=== PATIENT | male | born 1975 | race Two or more races ===

== ENCOUNTER 2019-11-08 05:21 | Emergency (ER) | payer OTHER ==
[~2019-11-08] VITALS: Ht 182.9 cm; Wt 103.7 kg
--- NOTE | 2019-11-08 05:57 | NUR ---
DR LINARES PERFORMED PT HISTORY AND ASSESSMENT AT BS. LAB AT [facility] TO DRAW LABS. FLU AND COVID SWABS COMPLETED AND WALKED TO LAB AT THIS TIME.
[2019-11-08 06:17] LABS: ALBUMIN 3.7 g/dL (3.4-5.0); ANION GAP 9 mmol/L (5-15); CALCIUM 9.4 mg/dL (8.5-10.1); CHLORIDE 106 mmol/L (98-107)
[2019-11-08 06:22] LABS: ALANINE AMINOTRANSFERASE 149 U/L (12-78); ALKALINE PHOSPHATASE 107 U/L (45-117); BILIRUBIN,TOTAL 0.4 mg/dL (0.2-1.0); CREATINE KINASE, TOTAL 139 U/L (39-308); CREATININE 0.91 mg/dL (0.7-1.3); TOTAL PROTEIN 8.9 g/dL (6.4-8.2)
[2019-11-08 06:29] VITALS: BP 133/107
[2019-11-08 06:33] LABS: RAPID INFLUENZA A Negative (Negative); RAPID INFLUENZA B Negative (Negative)
--- NOTE | 2019-11-08 06:45 | NUR ---
XRAY AT AT THIS TIME.
[2019-11-08 06:49] LABS: MEAN CORPUSCULAR HEMOGLOBIN 29.5 pg (27.5-34.5); MEAN CORPUSCULAR VOLUME 89.5 fL (81-97); MEAN PLATELET VOLUME 8.1 fL (7.4-10.4); PLATELET COUNT 316 x10^3/uL (130-400); RED CELL DISTRIBUTION WIDTH 13.1 % (9.4-14.8)
[2019-11-08 06:50] LABS: BASOPHILS # (AUTO) 0.03 x10^3/uL (0-0.1); BASOPHILS % (AUTO) 0 % (0-1); EOSINOPHILS # (AUTO) 0.24 x10^3/uL (0-0.4); EOSINOPHILS % (AUTO) 3 % (1-7); LYMPHOCYTES # (AUTO) 2.42 x10^3/uL (1-3.4); LYMPHOCYTES % (AUTO) 29 % (22-44); MD SCAN; MONOCYTES # (AUTO) 1.21 x10^3/uL (0.2-0.8); MONOCYTES % (AUTO) 14 % (2-9); NEUTROPHILS % (AUTO) 54 % (42-75)
--- NOTE | 2019-11-08 06:57 | NUR ---
REPORT OF PT TO EMELY MCNAMARA. ALL QUESTIONS ANSWERED.
--- NOTE | 2019-11-08 06:57 | NUR ---
REPORT RECEIVED FROM EMELY LIZ. ERP TO BEDSIDE TO UPDATE PT ON POC.
== END 2019-11-08 07:08 | disposition home or self-care (01) ==
LOC: ED 05:37
DX: J18.9 Pneumonia, unspecified organism (principal); Z20.828 Contact with and (suspected) exposure to other viral communicable diseases; B34.9 Viral infection, unspecified
CPT/HCPCS: 36415; 71045; 80053; 82550; 85025; 87400; 99284; U0001

== ENCOUNTER 2019-11-17 02:00 | Emergency (ER) | payer SELFPAY ==
[~2019-11-17] VITALS: Ht 182.9 cm; Wt 105.1 kg
--- NOTE | 2019-11-17 02:16 | NUR ---
Patient presents to ER c/o insomnia x2 days along with abd bloating. 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 Patient denies N/V/D or constipation. No urinary symptoms. Patient is in NAD. Respirations even and unlabored.
[2019-11-17] MEDS ORDERED: LORazepam 1MG TABLET PO ONE (02:30)
[2019-11-17] MEDS ORDERED: LORazepam 1MG TABLET ONE (02:37)
[2019-11-17 02:39] VITALS: BP 145/98
== END 2019-11-17 03:38 | disposition home or self-care (01) ==
LOC: ED 03:34
DX: F51.04 Psychophysiologic insomnia (principal); F41.1 Generalized anxiety disorder; Z87.891 Personal history of nicotine dependence
CPT/HCPCS: 99283

== ENCOUNTER 2020-05-29 22:52 | Inpatient (IN) | payer OTHER ==
[~2020-05-29] VITALS: Ht 182.9 cm; Wt 103.4 kg
--- NOTE | 2020-05-29 23:25 | NUR ---
PT BIB [facility] FOR COVID SYMPTOMS. PT REPORTS FEELING TOO TIRED TO BREATHE, LETHARY, LOSS OF TASTE, LOW O2 SATS 88-89 RA, AND FEVERS. PT REPORTS "I FEEL LIKE I JUST DONT HAVE THE ENERGY TO BREATHE, I AM TOO LAZY TO TAKE A BREATH." PT PLACED ON 2L NC ENROUTE BY PETER. PT BROTHER THURSDAY OF COVID, PT HAS POSITIVE RESULTS TODAY TOOK 500MG TYLENOL @2130 EKG COMPLETE. PT PLACED ON SPO2/BP/ECG MONITORING. ALESHA CARR AT FOR EVAL AND POC.
[2020-05-29] MEDS ORDERED: ALBUTEROL RESCUE (23:30)
[2020-05-29 23:32] LABS: BASOPHILS % (AUTO) 1 % (0-1); EOSINOPHILS % (AUTO) 0 % (1-7); LYMPHOCYTES % (AUTO) 23 % (22-44); MEAN CORPUSCULAR HEMOGLOBIN 30.3 pg (27.5-34.5); MEAN CORPUSCULAR HGB CONC 35.3 g/dL (33.2-36.2); MEAN PLATELET VOLUME 8.1 fL (7.4-10.4); MONOCYTES % (AUTO) 14 % (2-9); NEUTROPHILS % (AUTO) 62 % (42-75); PLATELET COUNT 245 x10^3/uL (130-400); RED CELL DISTRIBUTION WIDTH 13.9 % (9.4-14.8)
[2020-05-29 23:35] LABS: MD NO
[2020-05-29 23:44] LABS: ANION GAP 9 mmol/L (5-15); CALCIUM 9.2 mg/dL (8.5-10.1); CHLORIDE 110 mmol/L (98-107); CREATININE 0.93 mg/dL (0.7-1.3)
[2020-05-29 23:48] LABS: TROPONIN I < 0.015 ng/mL (0.000-0.045)
[2020-05-30] MEDS ORDERED: LORazepam 0.5MG TABLET ONE (00:06)
[2020-05-30] MEDS ORDERED: LORazepam 1MG TABLET PO ONE (00:30)
[2020-05-30] MEDS ORDERED: DEXAMETHASONE 4 MG TABLET ONE (00:53)
[2020-05-30] MEDS ORDERED: DEXAMETHASONE 4 MG TABLET PO ONE (01:00)
[2020-05-30] MEDS ORDERED: LORazepam 0.5MG TABLET PO ONE (01:00)
--- NOTE | 2020-05-30 01:37 | NUR ---
PT MEDICATED PER Sep,, REPORTS HE FEELS SLIGHTLY BETTER. WCTM. PT TO BE ADMITTED, REPORT CALLED TO CHRISTIE HAN.
[2020-05-30 02:05] VITALS: BP 126/87
[2020-05-30] MEDS ORDERED: DOXYCYCLINE 100MG TABLET PO SCH (04:30)
[2020-05-30] MEDS ORDERED: PROMETHAZINE 25 MG/ML, 1ML IM PRN (04:30)
[2020-05-30] MEDS ORDERED: ENALAPRILAT 1.25 MG/ML, 2ML IVPush PRN (04:30)
[2020-05-30] MEDS: ENOXAPARIN 40 MG/0.4 ML SQ SCH (04:48)
[2020-05-30] MEDS: CEFTRIAXONE PMX 1GM/50ML 50 ML IV SCH (05:17)
[2020-05-30 07:02] VITALS: BP 132/97
[2020-05-30] MEDS: ZINC SULFATE 220 MG CAPSULE PO SCH (08:35)
[2020-05-30] MEDS: THIAMINE 100MG TABLET PO SCH ×2 (08:36→20:54)
[2020-05-30] MEDS: CHOLECALCIFEROL 5,000u TAB PO SCH (08:49)
[2020-05-30] MEDS: DEXAMETHASONE 4 MG/ML, 1ML IVPush SCH (08:49)
[2020-05-30] MEDS: ASCORBIC ACID 500 MG TABLET PO SCH ×2 (08:49→16:20)
[2020-05-30] MEDS: LORazepam 1MG TABLET PO PRN (08:50)
[2020-05-30 08:56] LABS: HCT (SEDRATE) 51.2 % (39.2-51.8)
[2020-05-30 10:25] LABS: C-REACTIVE PROTEIN, QUANT 0.75 mg/dL (0.02-0.49)
[2020-05-30 14:15] VITALS: BP 143/90
[2020-05-30 16:21] VITALS: BP 134/92
[2020-05-30 18:42] VITALS: BP 125/78
[2020-05-30] MEDS: MELATONIN 5 MG TABLET PO SCH (20:54)
[2020-05-31 00:05] VITALS: BP 131/95
[2020-05-31] MEDS: ENOXAPARIN 40 MG/0.4 ML SQ SCH (05:00)
[2020-05-31 05:22] LABS: BASOPHILS % (AUTO) 0 % (0-1); EOSINOPHILS % (AUTO) 0 % (1-7); LYMPHOCYTES % (AUTO) 23 % (22-44); MEAN CORPUSCULAR HGB CONC 34.5 g/dL (33.2-36.2); MEAN PLATELET VOLUME 8.6 fL (7.4-10.4); MONOCYTES % (AUTO) 13 % (2-9); NEUTROPHILS % (AUTO) 65 % (42-75); PLATELET COUNT 260 x10^3/uL (130-400); RED BLOOD COUNT 5.38 x10^6/uL (4.38-5.82); RED CELL DISTRIBUTION WIDTH 13.9 % (9.4-14.8)
[2020-05-31 05:29] LABS: HCT (SEDRATE) 46.8 % (39.2-51.8)
[2020-05-31 05:30] LABS: MD NO
[2020-05-31] MEDS: CEFTRIAXONE PMX 1GM/50ML 50 ML IV SCH (05:32)
[2020-05-31 05:40] LABS: ANION GAP 6 mmol/L (5-15); C-REACTIVE PROTEIN, QUANT 0.48 mg/dL (0.02-0.49); CALCIUM 8.8 mg/dL (8.5-10.1); CHLORIDE 108 mmol/L (98-107); CREATININE 0.93 mg/dL (0.7-1.3)
[2020-05-31] MEDS: LORazepam 1MG TABLET PO PRN ×2 (05:55→10:47)
[2020-05-31 07:11] VITALS: BP 126/87
[2020-05-31] MEDS: DEXAMETHASONE 4 MG/ML, 1ML IVPush SCH (07:45)
[2020-05-31] MEDS: ZINC SULFATE 220 MG CAPSULE PO SCH (07:45)
[2020-05-31] MEDS: THIAMINE 100MG TABLET PO SCH ×2 (07:45→21:13)
[2020-05-31] MEDS: CHOLECALCIFEROL 5,000u TAB PO SCH (07:45)
[2020-05-31] MEDS: ASCORBIC ACID 500 MG TABLET PO SCH ×2 (07:46→17:18)
[2020-05-31 13:39] VITALS: BP 122/82
[2020-05-31 18:18] VITALS: BP 148/89
[2020-05-31] MEDS: MELATONIN 5 MG TABLET PO SCH (21:13)
[2020-06-01 00:22] VITALS: BP 124/82
[2020-06-01] MEDS: ENOXAPARIN 40 MG/0.4 ML SQ SCH (05:00)
[2020-06-01] MEDS: CEFTRIAXONE PMX 1GM/50ML 50 ML IV SCH (05:14)
[2020-06-01] MEDS: LORazepam 1MG TABLET PO PRN ×2 (05:19→10:01)
[2020-06-01 06:23] LABS: BASOPHILS % (AUTO) 0 % (0-1); EOSINOPHILS % (AUTO) 0 % (1-7); LYMPHOCYTES % (AUTO) 19 % (22-44); MEAN CORPUSCULAR HEMOGLOBIN 30.5 pg (27.5-34.5); MEAN CORPUSCULAR HGB CONC 34.7 g/dL (33.2-36.2); MEAN PLATELET VOLUME 8.4 fL (7.4-10.4); MONOCYTES % (AUTO) 9 % (2-9); NEUTROPHILS % (AUTO) 72 % (42-75); PLATELET COUNT 241 x10^3/uL (130-400); RED BLOOD COUNT 5.34 x10^6/uL (4.38-5.82); RED CELL DISTRIBUTION WIDTH 13.9 % (9.4-14.8)
[2020-06-01 06:29] LABS: MD NO
[2020-06-01 06:33] LABS: CHLORIDE 106 mmol/L (98-107)
[2020-06-01 06:39] LABS: ALANINE AMINOTRANSFERASE 61 U/L (12-78); ALBUMIN 3.4 g/dL (3.4-5.0); ALKALINE PHOSPHATASE 51 U/L (45-117); ANION GAP 6 mmol/L (5-15); BILIRUBIN,TOTAL 0.5 mg/dL (0.2-1.0); C-REACTIVE PROTEIN, QUANT 0.23 mg/dL (0.02-0.49); CALCIUM 9.3 mg/dL (8.5-10.1); CREATININE 0.86 mg/dL (0.7-1.3); TOTAL PROTEIN 7.3 g/dL (6.4-8.2)
[2020-06-01] MEDS: CHOLECALCIFEROL 5,000u TAB PO SCH (07:56)
[2020-06-01] MEDS: ASCORBIC ACID 500 MG TABLET PO SCH ×2 (07:57→16:25)
[2020-06-01] MEDS: ZINC SULFATE 220 MG CAPSULE PO SCH (07:57)
[2020-06-01] MEDS: THIAMINE 100MG TABLET PO SCH ×2 (07:57→20:08)
[2020-06-01] MEDS: DEXAMETHASONE 4 MG/ML, 1ML IVPush SCH (07:57)
[2020-06-01 07:59] VITALS: BP 129/86
[2020-06-01 15:13] VITALS: BP 133/78
[2020-06-01 18:13] VITALS: BP 129/92
[2020-06-01] MEDS: MELATONIN 5 MG TABLET PO SCH (20:08)
[2020-06-02 00:31] VITALS: BP 133/84
[2020-06-02] MEDS: CEFTRIAXONE PMX 1GM/50ML 50 ML IV SCH (04:27)
[2020-06-02] MEDS: ENOXAPARIN 40 MG/0.4 ML SQ SCH (04:28)
[2020-06-02] MEDS: LORazepam 1MG TABLET PO PRN ×2 (04:28→09:06)
[2020-06-02 05:27] LABS: BASOPHILS % (AUTO) 0 % (0-1); EOSINOPHILS % (AUTO) 0 % (1-7); LYMPHOCYTES % (AUTO) 21 % (22-44); MEAN CORPUSCULAR HEMOGLOBIN 30.2 pg (27.5-34.5); MEAN CORPUSCULAR HGB CONC 34.5 g/dL (33.2-36.2); MONOCYTES % (AUTO) 11 % (2-9); NEUTROPHILS % (AUTO) 69 % (42-75); PLATELET COUNT 258 x10^3/uL (130-400); RED BLOOD COUNT 5.28 x10^6/uL (4.38-5.82); RED CELL DISTRIBUTION WIDTH 13.8 % (9.4-14.8)
[2020-06-02 05:30] LABS: MD NO
[2020-06-02 05:37] LABS: ALANINE AMINOTRANSFERASE 82 U/L (12-78); ALBUMIN 3.3 g/dL (3.4-5.0); ANION GAP 7 mmol/L (5-15); CALCIUM 8.2 mg/dL (8.5-10.1); CHLORIDE 106 mmol/L (98-107); CREATININE 0.86 mg/dL (0.7-1.3)
[2020-06-02 05:39] LABS: ALKALINE PHOSPHATASE 55 U/L (45-117); BILIRUBIN,TOTAL 0.4 mg/dL (0.2-1.0); TOTAL PROTEIN 7.4 g/dL (6.4-8.2)
[2020-06-02 06:28] LABS: HCT (SEDRATE) 45.7 % (39.2-51.8)
[2020-06-02 06:55] VITALS: BP 122/81
[2020-06-02] MEDS ORDERED: CHOLECALCIFEROL 1,000 UNIT TABLET ONE (08:54)
[2020-06-02] MEDS: CHOLECALCIFEROL 5,000u TAB PO SCH (09:00)
[2020-06-02] MEDS: THIAMINE 100MG TABLET PO SCH ×2 (09:06→20:27)
[2020-06-02] MEDS: ZINC SULFATE 220 MG CAPSULE PO SCH (09:06)
[2020-06-02] MEDS: ASCORBIC ACID 500 MG TABLET PO SCH ×2 (09:06→16:32)
[2020-06-02] MEDS: DEXAMETHASONE 4 MG/ML, 1ML IVPush SCH (09:07)
[2020-06-02] MEDS: ACETAMINOPHEN 325 MG TABLET PO PRN (09:22)
[2020-06-02] MEDS ORDERED: SENNA/DOCUSATE TABLET PO PRN (10:00)
[2020-06-02] MEDS ORDERED: POLYETHYLENE GLYCOL 17 GM PACKET PO PRN (10:00)
[2020-06-02 13:07] VITALS: BP 126/80
[2020-06-02 18:44] VITALS: BP 133/89
[2020-06-02] MEDS: MELATONIN 5 MG TABLET PO SCH (20:27)
[2020-06-03 00:11] VITALS: BP 130/85
[2020-06-03] MEDS: LORazepam 1MG TABLET PO PRN ×3 (00:20→09:12)
[2020-06-03] MEDS: ACETAMINOPHEN 325 MG TABLET PO PRN ×3 (03:04→16:46)
[2020-06-03] MEDS: CEFTRIAXONE PMX 1GM/50ML 50 ML IV SCH (05:03)
[2020-06-03] MEDS: ENOXAPARIN 40 MG/0.4 ML SQ SCH (05:04)
[2020-06-03 05:54] LABS: BASOPHILS % (AUTO) 0 % (0-1); EOSINOPHILS % (AUTO) 0 % (1-7); LYMPHOCYTES % (AUTO) 17 % (22-44); MEAN CORPUSCULAR HEMOGLOBIN 29.8 pg (27.5-34.5); MONOCYTES % (AUTO) 13 % (2-9); NEUTROPHILS % (AUTO) 70 % (42-75); PLATELET COUNT 235 x10^3/uL (130-400); RED BLOOD COUNT 5.27 x10^6/uL (4.38-5.82); RED CELL DISTRIBUTION WIDTH 13.6 % (9.4-14.8)
[2020-06-03 05:55] LABS: ALANINE AMINOTRANSFERASE 124 U/L (12-78); ALBUMIN 3.2 g/dL (3.4-5.0); ANION GAP 8 mmol/L (5-15); CALCIUM 8.6 mg/dL (8.5-10.1); CHLORIDE 106 mmol/L (98-107); CREATININE 0.84 mg/dL (0.7-1.3)
[2020-06-03 06:02] LABS: ALKALINE PHOSPHATASE 61 U/L (45-117); BILIRUBIN,TOTAL 0.6 mg/dL (0.2-1.0); TOTAL PROTEIN 7.5 g/dL (6.4-8.2)
[2020-06-03 06:03] LABS: MD NO
[2020-06-03] MEDS ORDERED: POTASSIUM CHLORIDE 20 MEQ TAB.ER.PRT PO ONE (07:00)
[2020-06-03 07:15] VITALS: BP 125/86
[2020-06-03] MEDS: ZINC SULFATE 220 MG CAPSULE PO SCH (09:12)
[2020-06-03] MEDS: CHOLECALCIFEROL 5,000u TAB PO SCH (09:12)
[2020-06-03] MEDS: ASCORBIC ACID 500 MG TABLET PO SCH ×2 (09:12→16:46)
[2020-06-03] MEDS: THIAMINE 100MG TABLET PO SCH ×2 (09:12→22:08)
[2020-06-03] MEDS: DEXAMETHASONE 4 MG/ML, 1ML IVPush SCH (09:13)
[2020-06-03] MEDS ORDERED: IBUPROFEN 600 MG TABLET PO PRN (11:30)
[2020-06-03 12:07] VITALS: BP 140/94
[2020-06-03 21:00] VITALS: BP 144/89
[2020-06-03] MEDS: MELATONIN 5 MG TABLET PO SCH (22:07)
[2020-06-04 00:55] VITALS: BP 154/90
[2020-06-04] MEDS: ACETAMINOPHEN 325 MG TABLET PO PRN ×2 (00:59→04:56)
[2020-06-04] MEDS: LORazepam 1MG TABLET PO PRN ×2 (04:51→10:05)
[2020-06-04] MEDS: ENOXAPARIN 40 MG/0.4 ML SQ SCH (04:55)
[2020-06-04] MEDS: CEFTRIAXONE PMX 1GM/50ML 50 ML IV SCH (04:56)
[2020-06-04 06:12] LABS: HCT (SEDRATE) 44.6 % (39.2-51.8)
[2020-06-04 06:25] LABS: CHLORIDE 101 mmol/L (98-107)
[2020-06-04 06:37] LABS: ALANINE AMINOTRANSFERASE 402 U/L (12-78); ALBUMIN 2.9 g/dL (3.4-5.0); ALKALINE PHOSPHATASE 93 U/L (45-117); ANION GAP 8 mmol/L (5-15); BILIRUBIN,TOTAL 0.5 mg/dL (0.2-1.0); CALCIUM 8.6 mg/dL (8.5-10.1); CREATININE 0.93 mg/dL (0.7-1.3); TOTAL PROTEIN 7.5 g/dL (6.4-8.2)
[2020-06-04 06:42] LABS: BASOPHILS % (AUTO) 0 % (0-1); EOSINOPHILS % (AUTO) 0 % (1-7); LYMPHOCYTES % (AUTO) 12 % (22-44); MEAN CORPUSCULAR HEMOGLOBIN 29.9 pg (27.5-34.5); MEAN CORPUSCULAR HGB CONC 34.7 g/dL (33.2-36.2); MEAN PLATELET VOLUME 8.3 fL (7.4-10.4); MONOCYTES % (AUTO) 9 % (2-9); NEUTROPHILS % (AUTO) 78 % (42-75); PLATELET COUNT 251 x10^3/uL (130-400); RED BLOOD COUNT 5.21 x10^6/uL (4.38-5.82); RED CELL DISTRIBUTION WIDTH 13.6 % (9.4-14.8)
[2020-06-04 07:03] LABS: MD NO
[2020-06-04] MEDS: DEXAMETHASONE 4 MG/ML, 1ML IVPush SCH (08:15)
[2020-06-04] MEDS: ZINC SULFATE 220 MG CAPSULE PO SCH (08:15)
[2020-06-04] MEDS: CHOLECALCIFEROL 5,000u TAB PO SCH (08:15)
[2020-06-04] MEDS: ASCORBIC ACID 500 MG TABLET PO SCH ×2 (08:15→17:02)
[2020-06-04] MEDS: THIAMINE 100MG TABLET PO SCH ×2 (08:15→20:18)
[2020-06-04 08:24] VITALS: BP 123/87
[2020-06-04] MEDS ORDERED: NS + 20MEQ KCL 1,000 ML IV SCH (11:30)
[2020-06-04 12:09] VITALS: BP 156/82
[2020-06-04] MEDS: MELATONIN 5 MG TABLET PO SCH (20:18)
[2020-06-04 20:19] VITALS: BP 145/91
[2020-06-05 00:20] VITALS: BP 143/88
[2020-06-05] MEDS: ACETAMINOPHEN 325 MG TABLET PO PRN ×2 (00:25→08:42)
[2020-06-05] MEDS: LORazepam 1MG TABLET PO PRN ×3 (00:25→17:55)
[2020-06-05] MEDS: ENOXAPARIN 40 MG/0.4 ML SQ SCH (04:14)
[2020-06-05] MEDS: CEFTRIAXONE PMX 1GM/50ML 50 ML IV SCH (04:14)
[2020-06-05 06:09] LABS: BASOPHILS % (AUTO) 0 % (0-1); EOSINOPHILS % (AUTO) 0 % (1-7); LYMPHOCYTES % (AUTO) 13 % (22-44); MEAN CORPUSCULAR HEMOGLOBIN 30.3 pg (27.5-34.5); MEAN PLATELET VOLUME 7.9 fL (7.4-10.4); MONOCYTES % (AUTO) 8 % (2-9); NEUTROPHILS % (AUTO) 79 % (42-75); PLATELET COUNT 258 x10^3/uL (130-400); RED BLOOD COUNT 5.22 x10^6/uL (4.38-5.82); RED CELL DISTRIBUTION WIDTH 13.3 % (9.4-14.8)
[2020-06-05 06:18] LABS: ALBUMIN 2.8 g/dL (3.4-5.0); ANION GAP 8 mmol/L (5-15); CALCIUM 9.3 mg/dL (8.5-10.1); CHLORIDE 104 mmol/L (98-107)
[2020-06-05 06:29] LABS: HCT (SEDRATE) 45.3 % (39.2-51.8); MD NO
[2020-06-05 06:30] LABS: ALANINE AMINOTRANSFERASE 558 U/L (12-78); ALKALINE PHOSPHATASE 122 U/L (45-117); BILIRUBIN,TOTAL 0.3 mg/dL (0.2-1.0); CREATININE 0.77 mg/dL (0.7-1.3); TOTAL PROTEIN 7.8 g/dL (6.4-8.2)
[2020-06-05 07:40] VITALS: BP 142/84
[2020-06-05] MEDS: ASCORBIC ACID 500 MG TABLET PO SCH ×2 (08:41→17:54)
[2020-06-05] MEDS: THIAMINE 100MG TABLET PO SCH ×2 (08:41→20:04)
[2020-06-05] MEDS: ZINC SULFATE 220 MG CAPSULE PO SCH (08:41)
[2020-06-05] MEDS: DEXAMETHASONE 4 MG/ML, 1ML IVPush SCH (08:43)
[2020-06-05] MEDS: CHOLECALCIFEROL 5,000u TAB PO SCH (09:54)
[2020-06-05] MEDS ORDERED: SODIUM CHLORIDE 0.9% 1,000 ML IV ONE (12:00)
[2020-06-05 12:20] VITALS: BP 124/85
[2020-06-05] MEDS: methylPREDNISolone SOD SUCC 40 MG/ML IV SCH (17:55)
[2020-06-05 18:22] VITALS: BP 132/83
[2020-06-05] MEDS: MELATONIN 5 MG TABLET PO SCH (20:04)
[2020-06-06 00:38] VITALS: BP 125/84
[2020-06-06] MEDS: methylPREDNISolone SOD SUCC 40 MG/ML IV SCH ×2 (05:13→16:26)
[2020-06-06] MEDS: ENOXAPARIN 40 MG/0.4 ML SQ SCH (05:13)
[2020-06-06 08:14] VITALS: BP 134/81
[2020-06-06] MEDS: ASCORBIC ACID 500 MG TABLET PO SCH ×2 (08:20→16:26)
[2020-06-06] MEDS: THIAMINE 100MG TABLET PO SCH ×2 (08:20→20:33)
[2020-06-06] MEDS: ZINC SULFATE 220 MG CAPSULE PO SCH (08:20)
[2020-06-06] MEDS: CHOLECALCIFEROL 5,000u TAB PO SCH (08:20)
[2020-06-06] MEDS: LORazepam 1MG TABLET PO PRN ×3 (08:47→20:33)
[2020-06-06] MEDS: ALBUTEROL HFA 90 MCG/SPRAY INH PRN ×2 (08:48→13:15)
[2020-06-06 08:56] LABS: ALBUMIN 2.7 g/dL (3.4-5.0); ANION GAP 10 mmol/L (5-15); CHLORIDE 107 mmol/L (98-107)
[2020-06-06 09:05] LABS: CREATININE 0.75 mg/dL (0.7-1.3)
[2020-06-06 09:06] LABS: ALANINE AMINOTRANSFERASE 1216 U/L (12-78); ALKALINE PHOSPHATASE 175 U/L (45-117); BILIRUBIN,TOTAL 0.6 mg/dL (0.2-1.0); TOTAL PROTEIN 8.1 g/dL (6.4-8.2)
[2020-06-06] MEDS ORDERED: FUROSEMIDE 40 MG/4 ML IV ONE (12:00)
[2020-06-06 13:01] VITALS: BP 132/85
[2020-06-06 19:38] VITALS: BP 120/82
[2020-06-06] MEDS: MELATONIN 5 MG TABLET PO SCH (20:33)
[2020-06-07 00:25] VITALS: BP 123/81
[2020-06-07] MEDS: methylPREDNISolone SOD SUCC 40 MG/ML IV SCH (05:05)
[2020-06-07] MEDS: ENOXAPARIN 40 MG/0.4 ML SQ SCH (05:06)
[2020-06-07 07:05] VITALS: BP 124/87
[2020-06-07] MEDS: ASCORBIC ACID 500 MG TABLET PO SCH ×2 (09:04→17:32)
[2020-06-07] MEDS: ALBUTEROL HFA 90 MCG/SPRAY INH PRN (09:04)
[2020-06-07] MEDS: CHOLECALCIFEROL 5,000u TAB PO SCH (09:04)
[2020-06-07] MEDS: ZINC SULFATE 220 MG CAPSULE PO SCH (09:04)
[2020-06-07] MEDS: LORazepam 1MG TABLET PO PRN ×3 (09:04→20:03)
[2020-06-07] MEDS: THIAMINE 100MG TABLET PO SCH ×2 (09:04→20:04)
[2020-06-07 09:19] LABS: ALBUMIN 2.7 g/dL (3.4-5.0); ANION GAP 10 mmol/L (5-15); CHLORIDE 105 mmol/L (98-107)
[2020-06-07 09:27] LABS: ALANINE AMINOTRANSFERASE 1597 U/L (12-78); ALKALINE PHOSPHATASE 197 U/L (45-117); BILIRUBIN,TOTAL 0.5 mg/dL (0.2-1.0); CREATININE 0.96 mg/dL (0.7-1.3); TOTAL PROTEIN 8.1 g/dL (6.4-8.2)
[2020-06-07] MEDS ORDERED: FUROSEMIDE 40 MG/4 ML IV ONE (11:00)
[2020-06-07 12:21] LABS: INTERNATIONAL NORMALIZED RATIO 1.01 (0.93-1.1); PROTHROMBIN TIME 10.7 Seconds (9.6-11.5)
[2020-06-07 14:07] VITALS: BP 131/85
[2020-06-07] MEDS: methylPREDNISolone SOD SUCC 125 MG/2 ML IV SCH (17:32)
[2020-06-07 18:51] VITALS: BP 129/84
[2020-06-07] MEDS: MELATONIN 5 MG TABLET PO SCH (20:03)
[2020-06-08 00:23] VITALS: BP 128/82
[2020-06-08] MEDS: LORazepam 1MG TABLET PO PRN ×5 (00:48→21:37)
[2020-06-08 04:18] LABS: ALBUMIN 2.5 g/dL (3.4-5.0); ANION GAP 5 mmol/L (5-15); CALCIUM 9.1 mg/dL (8.5-10.1); CHLORIDE 104 mmol/L (98-107)
[2020-06-08 04:31] LABS: ALANINE AMINOTRANSFERASE 1331 U/L (12-78); ALKALINE PHOSPHATASE 173 U/L (45-117); BILIRUBIN,TOTAL 0.3 mg/dL (0.2-1.0); TOTAL PROTEIN 7.7 g/dL (6.4-8.2)
[2020-06-08] MEDS: ENOXAPARIN 40 MG/0.4 ML SQ SCH (05:00)
[2020-06-08] MEDS: methylPREDNISolone SOD SUCC 125 MG/2 ML IV SCH ×2 (05:35→17:03)
[2020-06-08 06:47] VITALS: BP 129/87
[2020-06-08] MEDS ORDERED: FUROSEMIDE 40 MG/4 ML IV ONE (09:00)
[2020-06-08] MEDS: THIAMINE 100MG TABLET PO SCH ×2 (09:43→20:12)
[2020-06-08] MEDS: ALBUTEROL HFA 90 MCG/SPRAY INH PRN (09:43)
[2020-06-08] MEDS: ASCORBIC ACID 500 MG TABLET PO SCH ×2 (09:43→17:03)
[2020-06-08] MEDS: CHOLECALCIFEROL 5,000u TAB PO SCH (09:43)
[2020-06-08] MEDS: ZINC SULFATE 220 MG CAPSULE PO SCH (09:43)
[2020-06-08 12:27] VITALS: BP 138/93
[2020-06-08 18:33] VITALS: BP 146/89
[2020-06-08] MEDS: MELATONIN 5 MG TABLET PO SCH (20:12)
[2020-06-09 00:34] VITALS: BP 129/81
[2020-06-09] MEDS: LORazepam 1MG TABLET PO PRN ×3 (04:30→22:44)
[2020-06-09] MEDS: ENOXAPARIN 40 MG/0.4 ML SQ SCH (05:00)
[2020-06-09] MEDS: methylPREDNISolone SOD SUCC 125 MG/2 ML IV SCH ×2 (05:32→17:19)
[2020-06-09 06:12] LABS: ALBUMIN 2.6 g/dL (3.4-5.0); ANION GAP 9 mmol/L (5-15); CALCIUM 8.9 mg/dL (8.5-10.1); CHLORIDE 106 mmol/L (98-107)
[2020-06-09 06:17] LABS: ALANINE AMINOTRANSFERASE 924 U/L (12-78); ALKALINE PHOSPHATASE 156 U/L (45-117); BILIRUBIN,TOTAL 0.3 mg/dL (0.2-1.0); CREATININE 0.78 mg/dL (0.7-1.3); TOTAL PROTEIN 7.4 g/dL (6.4-8.2)
[2020-06-09 06:29] VITALS: BP 137/90
[2020-06-09] MEDS: THIAMINE 100MG TABLET PO SCH ×2 (09:02→20:35)
[2020-06-09] MEDS: CHOLECALCIFEROL 5,000u TAB PO SCH (09:02)
[2020-06-09] MEDS: ZINC SULFATE 220 MG CAPSULE PO SCH (09:02)
[2020-06-09] MEDS: ASCORBIC ACID 500 MG TABLET PO SCH ×2 (09:02→17:20)
[2020-06-09 13:46] VITALS: BP 137/85
[2020-06-09 18:45] VITALS: BP 118/77
[2020-06-09] MEDS: MELATONIN 5 MG TABLET PO SCH (20:35)
[2020-06-10 01:08] VITALS: BP 141/89
[2020-06-10] MEDS: ENOXAPARIN 40 MG/0.4 ML SQ SCH (05:00)
[2020-06-10 05:24] LABS: ALANINE AMINOTRANSFERASE 636 U/L (12-78); ALBUMIN 2.4 g/dL (3.4-5.0); ANION GAP 12 mmol/L (5-15); CALCIUM 8.6 mg/dL (8.5-10.1); CHLORIDE 105 mmol/L (98-107)
[2020-06-10 05:26] LABS: ALKALINE PHOSPHATASE 140 U/L (45-117); BILIRUBIN,TOTAL 0.3 mg/dL (0.2-1.0); CREATININE 0.79 mg/dL (0.7-1.3); TOTAL PROTEIN 7.1 g/dL (6.4-8.2)
[2020-06-10] MEDS: methylPREDNISolone SOD SUCC 125 MG/2 ML IV SCH (05:36)
[2020-06-10 06:32] VITALS: BP 143/95
[2020-06-10] MEDS: ASCORBIC ACID 500 MG TABLET PO SCH ×2 (08:38→16:10)
[2020-06-10] MEDS: CHOLECALCIFEROL 5,000u TAB PO SCH (08:38)
[2020-06-10] MEDS: THIAMINE 100MG TABLET PO SCH ×2 (08:39→20:26)
[2020-06-10] MEDS: ZINC SULFATE 220 MG CAPSULE PO SCH (08:39)
[2020-06-10 12:58] VITALS: BP 135/81
[2020-06-10 20:19] VITALS: BP 148/93
[2020-06-10] MEDS: MELATONIN 5 MG TABLET PO SCH (20:26)
[2020-06-11 00:45] VITALS: BP 142/90
[2020-06-11] MEDS: ENOXAPARIN 40 MG/0.4 ML SQ SCH (05:00)
[2020-06-11 05:19] LABS: ALBUMIN 2.4 g/dL (3.4-5.0); ANION GAP 5 mmol/L (5-15); CALCIUM 8.5 mg/dL (8.5-10.1); CHLORIDE 109 mmol/L (98-107)
[2020-06-11 05:22] LABS: ALANINE AMINOTRANSFERASE 460 U/L (12-78); ALKALINE PHOSPHATASE 113 U/L (45-117); BILIRUBIN,TOTAL 0.3 mg/dL (0.2-1.0); CREATININE 0.74 mg/dL (0.7-1.3); TOTAL PROTEIN 6.5 g/dL (6.4-8.2)
[2020-06-11 07:39] VITALS: BP 127/87
[2020-06-11] MEDS: CHOLECALCIFEROL 5,000u TAB PO SCH (09:05)
[2020-06-11] MEDS: ZINC SULFATE 220 MG CAPSULE PO SCH (09:05)
[2020-06-11] MEDS: ASCORBIC ACID 500 MG TABLET PO SCH (09:05)
[2020-06-11] MEDS: ALBUTEROL HFA 90 MCG/SPRAY INH PRN (09:06)
[2020-06-11] MEDS: THIAMINE 100MG TABLET PO SCH (09:06)
[2020-06-11] MEDS ORDERED: CHOL500045 PO (12:40)
[2020-06-11] MEDS ORDERED: ZINC220C7 PO (12:40)
[2020-06-11] MEDS ORDERED: METH4TAB2 PO (12:40)
[2020-06-11] MEDS ORDERED: CLON0.5T PO (12:40)
[2020-06-11] MEDS ORDERED: ASCO1500 PO (12:40)
== END 2020-06-11 15:26 | disposition home or self-care (01) | DRG 177 ==
LOC: ED 05-30 00:59 → EDIP 05-30 01:37 → 3N 05-30 01:49
PROVIDERS: ADMIT Family Medicine; ATTEND Hospitalist
PROC: 5A0935A Assistance with Respiratory Ventilation, Less than 24 Consecutive Hours, High Flow/Velocity Cannula (ICD-10-PCS; principal; 2020-06-08)
DX: U07.1 COVID-19 (principal); J96.01 Acute respiratory failure with hypoxia; J12.89 Other viral pneumonia; K72.00 Acute and subacute hepatic failure without coma; Z83.3 Family history of diabetes mellitus; J45.20 Mild intermittent asthma, uncomplicated; F41.1 Generalized anxiety disorder; E87.6 Hypokalemia; R73.9 Hyperglycemia, unspecified; G47.00 Insomnia, unspecified; Z88.0 Allergy status to penicillin
CPT/HCPCS: 36415; 71045; 76700; 80048; 80053; 80074; 82040; 82728; 83605; 83615; 84145; 84484; 85025; 85379; 85610; 85651; 86140; 86644; 86645; 86664; 86665; 87040; 87806; 93005; 99285; G0378; J0696; J1100; J1650; J1940; J3480; G0475; J2920; J2930; J7030; J7512